=== PATIENT | male | born 1985 | race Caucasian/White ===

== ENCOUNTER 2017-07-31 03:48 | Emergency (ER) | payer SELFPAY ==
[2017-07-31] MEDS ORDERED: Sodium Chloride 0.9% 1,000 ML IV ONE ×2 (04:10→05:32)
[2017-07-31] MEDS ORDERED: Ondansetron 4 MG/2 ML SDV IVPUSH ONE (04:10)
[2017-07-31] MEDS ORDERED: Sodium Chloride 0.9% 2.5 ML Syringe FLUSH PRN (04:10)
[2017-07-31] MEDS ORDERED: Ketorolac 30 MG/ML SDV IVPUSH ONE (04:10)
[2017-07-31] MEDS ORDERED: Sodium Chloride 0.9% 10 ML Syringe FLUSH PRN (04:10)
[2017-07-31] MEDS ORDERED: HYDROmorphone 2 MG/ML SDV IVPUSH ONE ×2 (04:10→05:31)
--- NOTE | 2017-07-31 04:13 | EDM.PDOC ---
ED HPI GENERAL MEDICAL PROBLEM - General Chief Complaint: Flank Pain Stated Complaint: KIDNEY INFECTION Time Seen by Provider: 07/31/17 04:06 - History of Present Illness INITIAL COMMENTS - FREE TEXT/NARRATIVE: HISTORY AND PHYSICAL: History of present illness: The patient is a 31-year-old male who says that he may have had a kidney stone in the past which was very small and new presents with 5 days of intermittent left flank pain left lower abdominal pain that initially was present and then seemed to have gone away but then came back suddenly and sharply this evening. The patient has had nausea and vomiting today and has had no appetite the last 24 hours. He has only had one bottle of water to drink. He says that he has not had diarrhea and in fact he has issues with constipation but had a colonoscopy 2 years ago which was okay. He has no chest pain shortness of breath fevers chills or upper respiratory symptoms. He said that the initial pain started about 5 days ago after he was out drinking and his urine had a very foul smell but that has since improved. He has not noticed any hematuria. He has no STD risks and has no penile discharge or testicular swelling but says that the pain he is experiencing in the left shoots down to his testicle. As any neurosensory changes in his legs and this pain does not radiate to his legs or buttocks. Please note that the patient had expressed to nursing and triage there was concerned that somebody gave him an illegal substance to consume 5 days ago because he said he was offered something to try and drink which he did and he felt oddly afterwards and his urine has a foul smell. Review of systems: As per history of present illness and below otherwise all systems reviewed and negative. Past medical history: As per history of present illness and as reviewed below otherwise noncontributory. Surgical history: As per history of present illness and as reviewed below otherwise noncontributory. Social history: No reported history of drug or alcohol abuse. Family history: As per history of present illness and as reviewed below otherwise noncontributory. Physical exam: General: Well-developed well-nourished man who is very uncomfortable rolling around on the bed but is nontoxic appearing. HEENT: Atraumatic, normocephalic, pupils reactive, negative for conjunctival pallor or scleral icterus, mucous membranes dry, throat clear, neck supple, nontender, trachea midline. Lungs: Clear to auscultation, breath sounds equal bilaterally, chest nontender. Heart: S1S2, regular, negative for clicks, rubs, or JVD. Abdomen: Soft, nondistended, nontender. On palpation I cannot reproduce the pain in the left lower quadrant and there is no rebound or guarding bowel sounds are hypoactive. Negative for masses or hepatosplenomegaly. Negative for costovertebral tenderness. Pelvis: Stable nontender. Genitourinary: Deferred. Rectal: Deferred. Extremities: Atraumatic, negative for cords or calf pain. Neurovascular unremarkable. Neuro: Awake, alert, oriented. Cranial nerves II through XII unremarkable. Cerebellum unremarkable. Motor and sensory unremarkable throughout. Exam nonfocal. Diagnostics: CBC CMP UA urine culture UDS CT scan of the abdomen and pelvis Therapeutics: IV fluids Zofran Toradol Dilaudid Flomax Patient was made aware of the drug screen results All testing results were discussed with the patient at 05 20 5 AM. He says that his pain was improved with the meds but is now coming back and I will give him another dose of Dilaudid as well as Flomax. The patient says he is no longer nauseated like to drink fluids. I will also give another liter of IV fluids. I discussed with the patient that if we can control his pain I can send him out on oxycodone , because the patient is allergic to Tylenol, Zofran and Flomax and see if he can pass this stone at home with urology follow-up. As we currently do not have urology coverage for another 10 days I would need to connect him with a urologist at [facility]. The patient is aware that if his pain cannot be controlled he will need to be transferred as I cannot admit him here without urology coverage. We will give the medication and reevaluate. Patient is feeling improved after the second dose of Dilaudid and is calling to get a ride. He would like to try to go home so we will give him urine strainers and strict advice on reasons to return and prescriptions for home medications Impression: Left flank/abdominal pain, left proximal ureteraolithiasis Definitive disposition and diagnosis as appropriate pending reevaluation and review of above. Left Flank Pain Score (Numeric/FACES): 7 - Related Data Allergies Allergy/AdvReac Type Severity Reaction Status Date / Time acetaminophen [From Tylenol] Allergy Itching Verified 07/31/17 04:01 Home Meds: Home Meds . [No Known Home Meds] 07/31/17 [History] Social & Family History - Tobacco Use Smoking Status *Q: Current Every Day Smoker Years of Tobacco use: 10 Packs/Tins Daily: 0.5 - Recreational Drug Use Recreational Drug Use: No ED ROS GENERAL - Review of Systems Review Of Systems: ROS reveals no pertinent complaints other than HPI. ED EXAM, GENERAL - Physical Exam Exam: See Below (See dictation) Course - Vital Signs Last Recorded V/S: Last Vital Signs Temp 36.6 C 07/31/17 05:37 Pulse 55 L 07/31/17 05:37 Resp 17 07/31/17 05:37 BP 128/73 07/31/17 05:37 Pulse Ox 95 07/31/17 05:37 - Orders/Labs/Meds Orders: Active Orders 24 hr Category Date Time Status Communication Order [RC] STAT Care 07/31/17 05:58 Ordered Abdomen Pelvis wo Cont [CT] Stat Exams 07/31/17 04:10 Taken CULTURE URINE [RM] Stat Lab 07/31/17 04:03 Received DRUG SCREEN, URINE [URCHEM] Stat Lab 07/31/17 04:03 Ordered UA W/MICROSCOPIC [URIN] Stat Lab 07/31/17 04:03 Ordered Sodium Chloride 0.9% [Normal Saline] 1,000 ml Med 07/31/17 05:32 Active IV STAT Sodium Chloride 0.9% [Saline Flush] Med 07/31/17 04:10 Active 10 ml FLUSH ASDIRECTED PRN Sodium Chloride 0.9% [Saline Flush] Med 07/31/17 04:10 Active 2.5 ml FLUSH ASDIRECTED PRN Saline Lock Insert [OM.PC] Stat Oth 07/31/17 04:10 Ordered Medication Orders Sodium Chloride (Normal Saline) 1,000 mls @ 999 mls/hr IV STAT ONE Stop: 07/31/17 06:32 Last Admin: 07/31/17 05:39 Dose: 999 mls/hr Sodium Chloride (Saline Flush) 10 ml FLUSH ASDIRECTED PRN PRN Reason: Keep Vein Open Last Admin: 07/31/17 04:21 Dose: 10 ml Sodium Chloride (Saline Flush) 2.5 ml FLUSH ASDIRECTED PRN PRN Reason: Keep Vein Open Last Admin: 07/31/17 04:26 Dose: 2.5 ml Labs: Laboratory Tests 07/31/17 07/31/17 07/31/17 Range/Units 04:03 04:03 04:13 WBC 15.37 H (4.0-11.0) K/uL RBC 5.39 (4.50-5.90) M/uL Hgb 18.1 H (13.0-17.0) g/dL Hct 49.3 (38.0-50.0) % MCV 91.5 (80.0-98.0) fL MCH 33.6 H (27.0-32.0) pg MCHC 36.7 (31.0-37.0) g/dL RDW Std Deviation 40.7 (28.0-62.0) fl RDW Coeff of [place]al[place] 12 (11.0-15.0) % Plt Count 202 (150-400) K/uL MPV 10.20 (7.40-12.00) fL Neut % (Auto) 69.1 (48.0-80.0) % Lymph % (Auto) 19.7 (16.0-40.0) % [place] % (Auto) 10.3 (0.0-15.0) % Eos % (Auto) 0.7 (0.0-7.0) % Baso % (Auto) 0.2 (0.0-1.5) % Neut # (Auto) 10.6 H (1.4-5.7) K/uL Lymph # (Auto) 3.0 H (0.6-2.4) K/uL [place] # (Auto) 1.6 H (0.0-0.8) K/uL Eos # (Auto) 0.1 (0.0-0.7) K/uL Baso # (Auto) 0.0 (0.0-0.1) K/uL Nucleated RBC % 0.0 /100WBC Nucleated RBCs # 0 K/uL Sodium (136-148) mmol/L Potassium (3.5-5.1) mmol/L Chloride (98-107) mmol/L Carbon Dioxide (21.0-32.0) mmol/L BUN (7.0-18.0) mg/dL Creatinine (0.8-1.3) mg/dL Est Cr Clr Drug Dosing mL/min Estimated GFR (MDRD) ml/min Glucose (74-106) mg/dL Calcium (8.5-10.1) mg/dL Total Bilirubin (0.2-1.0) mg/dL AST (15-37) IU/L ALT (14-63) IU/L Alkaline Phosphatase (46-116) U/L Total Protein (6.4-8.2) g/dL Albumin (3.4-5.0) g/dL Globulin (2.0-3.5) g/dL Albumin/Globulin Ratio (1.3-2.8) Urine Color YELLOW Urine Appearance CLEAR Urine pH 6.0 (5.0-8.0) Ur Specific [place] <= 1.005 (1.001-1.035) Urine Protein NEGATIVE (NEGATIVE) mg/dL Urine Glucose (UA) NEGATIVE (NEGATIVE) mg/dL Urine Ketones NEGATIVE (NEGATIVE) mg/dL Urine Occult Blood LARGE H (NEGATIVE) Urine Nitrite NEGATIVE (NEGATIVE) Urine Bilirubin NEGATIVE (NEGATIVE) Urine Urobilinogen 0.2 (<2.0) EU/dL Ur Leukocyte Esterase NEGATIVE (NEGATIVE) Urine RBC 2-6 (0-2/HPF) Urine WBC 2-4 (0-5/HPF) Ur Epithelial Cells RARE (NONE-FEW) Urine Bacteria FEW (NEGATIVE) Urine Opiates Screen NEGATIVE (NEGATIVE) Ur Oxycodone Screen NEGATIVE (NEGATIVE) Urine Methadone Screen NEGATIVE (NEGATIVE) Ur Barbiturates Screen NEGATIVE (NEGATIVE) Ur Phencyclidine Scrn NEGATIVE (NEGATIVE) Ur Amphetamine Screen NEGATIVE (NEGATIVE) U Methamphetamines Scrn POSITIVE (NEGATIVE) U Benzodiazepines Scrn NEGATIVE (NEGATIVE) U Cocaine Metab Screen NEGATIVE (NEGATIVE) U Marijuana (THC) Screen NEGATIVE (NEGATIVE) 07/31/17 Range/Units 04:13 WBC (4.0-11.0) K/uL RBC (4.50-5.90) M/uL Hgb (13.0-17.0) g/dL Hct (38.0-50.0) % MCV (80.0-98.0) fL MCH (27.0-32.0) pg MCHC (31.0-37.0) g/dL RDW Std Deviation (28.0-62.0) fl RDW Coeff of [place] (11.0-15.0) % Plt Count (150-400) K/uL MPV (7.40-12.00) fL Neut % (Auto) (48.0-80.0) % Lymph % (Auto) (16.0-40.0) % [place] % (Auto) (0.0-15.0) % Eos % (Auto) (0.0-7.0) % Baso % (Auto) (0.0-1.5) % Neut # (Auto) (1.4-5.7) K/uL Lymph # (Auto) (0.6-2.4) K/uL [place] # (Auto) (0.0-0.8) K/uL Eos # (Auto) (0.0-0.7) K/uL Baso # (Auto) (0.0-0.1) K/uL Nucleated RBC % /100WBC Nucleated RBCs # K/uL Sodium 134 L (136-148) mmol/L Potassium 3.7 (3.5-5.1) mmol/L Chloride 99 (98-107) mmol/L Carbon Dioxide 23.5 (21.0-32.0) mmol/L BUN 14 (7.0-18.0) mg/dL Creatinine 1.3 (0.8-1.3) mg/dL Est Cr Clr Drug Dosing 102.81 mL/min Estimated GFR (MDRD) > 60.0 ml/min Glucose 105 (74-106) mg/dL Calcium 9.3 (8.5-10.1) mg/dL Total Bilirubin 1.7 H (0.2-1.0) mg/dL AST 18 (15-37) IU/L ALT 24 (14-63) IU/L Alkaline Phosphatase 122 H (46-116) U/L Total Protein 7.7 (6.4-8.2) g/dL Albumin 4.1 (3.4-5.0) g/dL Globulin 3.6 H (2.0-3.5) g/dL Albumin/Globulin Ratio 1.1 L (1.3-2.8) Urine Color Urine Appearance Urine pH (5.0-8.0) Ur Specific [place] (1.001-1.035) Urine Protein (NEGATIVE) mg/dL Urine Glucose (UA) (NEGATIVE) mg/dL Urine Ketones (NEGATIVE) mg/dL Urine Occult Blood (NEGATIVE) Urine Nitrite (NEGATIVE) Urine Bilirubin (NEGATIVE) Urine Urobilinogen (<2.0) EU/dL Ur Leukocyte Esterase (NEGATIVE) Urine RBC (0-2/HPF) Urine WBC (0-5/HPF) Ur Epithelial Cells (NONE-FEW) Urine Bacteria (NEGATIVE) Urine Opiates Screen (NEGATIVE) Ur Oxycodone Screen (NEGATIVE) Urine Methadone Screen (NEGATIVE) Ur Barbiturates Screen (NEGATIVE) Ur Phencyclidine Scrn (NEGATIVE) Ur Amphetamine Screen (NEGATIVE) U Methamphetamines Scrn (NEGATIVE) U Benzodiazepines Scrn (NEGATIVE) U Cocaine Metab Screen (NEGATIVE) U Marijuana (THC) Screen (NEGATIVE) Meds: Medications Generic Name Dose Route Start Last Admin Trade Name Freq PRN Reason Stop Dose Admin Sodium Chloride 1,000 mls @ 999 mls/hr 07/31/17 05:32 07/31/17 05:39 Normal Saline IV 07/31/17 06:32 999 mls/hr STAT ONE Administration Sodium Chloride 10 ml 07/31/17 04:10 07/31/17 04:21 Saline Flush FLUSH 10 ml ASDIRECTED PRN Administration Keep Vein Open Sodium Chloride 2.5 ml 07/31/17 04:10 07/31/17 04:26 Saline Flush FLUSH 2.5 ml ASDIRECTED PRN Administration Keep Vein Open Discontinued Medications Generic Name Dose Route Start Last Admin Trade Name Freq PRN Reason Stop Dose Admin Hydromorphone HCl 1 mg 07/31/17 04:10 07/31/17 04:23 Dilaudid IVPUSH 07/31/17 04:11 1 mg ONETIME ONE Administration Hydromorphone HCl 1 mg 07/31/17 05:31 07/31/17 05:40 Dilaudid IVPUSH 07/31/17 05:32 1 mg ONETIME ONE Administration Sodium Chloride 1,000 mls @ 999 mls/hr 07/31/17 04:10 07/31/17 04:20 Normal Saline IV 07/31/17 05:10 999 mls/hr STAT ONE Administration Ketorolac Tromethamine 30 mg 07/31/17 04:10 07/31/17 04:22 Toradol IVPUSH 07/31/17 04:11 30 mg ONETIME ONE Administration Ondansetron HCl 4 mg 07/31/17 04:10 07/31/17 04:21 Zofran IVPUSH 07/31/17 04:11 4 mg ONETIME ONE Administration Tamsulosin HCl 0.4 mg 07/31/17 05:31 07/31/17 05:38 Flomax PO 07/31/17 05:32 0.4 mg ONETIME ONE Administration Departure - Departure Time of Disposition: 06:00 Disposition: Home, Self-Care 01 Condition: Good Clinical Impression: Ureterolithiasis - Discharge Information Referrals: PCP,None [Primary Care Provider] - Forms: ED Department Discharge Additional Instructions: The following information is given to patients seen in the emergency department who are being discharged to home. This information is to outline your options for follow-up care. We provide all patients seen in our emergency department with a follow-up referral. The need for follow-up, as well as the timing and circumstances, are variable depending upon the specifics of your emergency department visit. If you don't have a primary care physician on staff, we will provide you with a referral. We always advise you to contact your personal physician following an emergency department visit to inform them of the circumstance of the visit and for follow-up with them and/or the need for any referrals to a consulting specialist. The emergency department will also refer you to a specialist when appropriate. This referral assures that you have the opportunity for followup care with a specialist. All of these measure are taken in an effort to provide you with optimal care, which includes your followup. Under all circumstances we always encourage you to contact your private physician who remains a resource for coordinating your care. When calling for followup care, please make the office aware that this follow-up is from your recent emergency room visit. If for any reason you are refused follow-up, please contact the [facility] emergency department at and ask to speak to the emergency department charge nurse. [facility] [address] [place] [id number] Push hydration use medications as needed and prescribed and strain all urine looking for your kidney stone. He will need follow-up in the next 5-7 days and our urologist may still be out of town but you can try to call his clinic to see if he is scheduling appointments and if not he will need to follow-up with a urologist at [facility] in [place]. We will give you information on those doctors that are available there. If you start having fevers, the pain is not controlled with the medications, he may need to go to [facility] in [place] for urologic care and admission or you may also come here and you will be evaluated treated and transferred at that time if necessary. Return to ER as needed and as we discussed - My Orders Last 24 Hours: My Active Orders 07/31/17 04:03 CULTURE URINE [RM] Stat DRUG SCREEN, URINE [URCHEM] Stat UA W/MICROSCOPIC [URIN] Stat 07/31/17 04:10 Abdomen Pelvis wo Cont [CT] Stat Sodium Chloride 0.9% [Saline Flush] 10 ml FLUSH ASDIRECTED PRN Sodium Chloride 0.9% [Saline Flush] 2.5 ml FLUSH ASDIRECTED PRN Saline Lock Insert [OM.PC] Stat 07/31/17 05:32 Sodium Chloride 0.9% [Normal Saline] 1,000 ml IV STAT 07/31/17 05:58 Communication Order [RC] STAT - Assessment/Plan Last 24 Hours: My Active Orders 07/31/17 04:03 CULTURE URINE [RM] Stat DRUG SCREEN, URINE [URCHEM] Stat UA W/MICROSCOPIC [URIN] Stat 07/31/17 04:10 Abdomen Pelvis wo Cont [CT] Stat Sodium Chloride 0.9% [Saline Flush] 10 ml FLUSH ASDIRECTED PRN Sodium Chloride 0.9% [Saline Flush] 2.5 ml FLUSH ASDIRECTED PRN Saline Lock Insert [OM.PC] Stat 07/31/17 05:32 Sodium Chloride 0.9% [Normal Saline] 1,000 ml IV STAT 07/31/17 05:58 Communication Order [RC] STAT
[2017-07-31 04:41] LABS: CHLORIDE,CL 99 mmol/L (98-107); SODIUM,NA 134 mmol/L (136-148)
[2017-07-31] MEDS ORDERED: Tamsulosin 0.4 MG Cap.ER PO ONE (05:31)
--- NOTE | 2017-07-31 10:30 | CT ---
EXAM DATE: 07/31/17 PATIENT'S AGE: 31 Patient: Raine DURON Facility: [place], [place] Site . Site : 1985 Study: CT Abdomen/Pelvis WO CONT [id number]/[id number] 4:53:48 AM Ordering Physician: Yareli Hussein Final Report: INDICATION: Left abdominal pain for 5 days TECHNIQUE: CT abdomen and pelvis without contrast. COMPARISON: None FINDINGS: Lower chest: Unremarkable. Liver: Unremarkable. Spleen: Unremarkable. Pancreas: Unremarkable. Gallbladder and bile ducts: Unremarkable. Adrenal glands: Unremarkable. Kidneys: Mild left hydronephrosis and proximal hydroureter secondary to an obstructing 0.5 cm stone in the proximal left ureter. No additional collecting system stone. Mild proximal periureteral and perinephric fat stranding. GI tract: Unremarkable. Appendix is normal. Vascular structures: Unremarkable. Lymph nodes: Unremarkable. Miscellaneous: Unremarkable. No free air or significant free fluid. Pelvic Organs: Unremarkable. Bones: Unremarkable for age. IMPRESSION: Mild left hydronephrosis and proximal hydroureter secondary to an obstructing 0.5 cm stone in the proximal left ureter. No additional collecting system stone. Please note that all CT scans at this facility use dose modulation, iterative reconstruction, and/or weight-based dosing when appropriate to reduce radiation dose to as low as reasonably achievable. Dictated by Jimena Barr MD @ Jul 31 2017 5:01AM (Electronic Signature) Report Signed by Proxy. ANISA
== END 2017-07-31 06:55 | disposition home or self-care (01) ==
LOC: MW.ED 03:48
DX: N13.2 Hydronephrosis with renal and ureteral calculous obstruction (principal); F17.210 Nicotine dependence, cigarettes, uncomplicated; Z88.6 Allergy status to analgesic agent
CPT/HCPCS: 36415; 74176; 80053; 80305; 81001; 85025; 87086; 96361; 96374; 96375; 96376; 99284; A9270; J1170; J1885; J2405; J7040